=== PATIENT | male | born 1990 | race Caucasian/White ===

== ENCOUNTER 2017-11-14 10:20 | Emergency (ER) | payer MEDICAID, OTHER ==
[~2017-11-14] VITALS: Ht 175.3 cm; Wt 99.8 kg
[2017-11-14 10:27] VITALS: BP_SYST 132
[2017-11-14] MEDS ORDERED: DIPH-TET-PERTUS Vaccine 0.5 ML VIAL (ADACEL) I.M. ONE (11:15)
[2017-11-14 12:37] VITALS: BP_SYST 124
== END 2017-11-14 12:37 | disposition home or self-care (01) ==
LOC: SED 10:20
DX: S91.331A Puncture wound without foreign body, right foot, initial encounter (principal); W22.8XXA Striking against or struck by other objects, initial encounter; Y93.01 Activity, walking, marching and hiking; Y92.89 Other specified places as the place of occurrence of the external cause; Y99.8 Other external cause status
CPT/HCPCS: 90715; 99284

== ENCOUNTER 2018-02-19 19:51 | Emergency (ER) | payer MEDICAID ==
[~2018-02-19] VITALS: Ht 180.3 cm; Wt 97.5 kg
[2018-02-19 19:51] VITALS: BP_SYST 125
[2018-02-19] MEDS ORDERED: LORazepam 1 MG TABLET PO ONE (20:30)
[2018-02-19 20:48] VITALS: BP_SYST 120
== END 2018-02-19 20:48 | disposition home or self-care (01) ==
LOC: SED 19:51
DX: Z00.00 Encounter for general adult medical examination without abnormal findings (principal); R03.0 Elevated blood-pressure reading, without diagnosis of hypertension
CPT/HCPCS: 99282

== ENCOUNTER 2018-03-17 23:44 | Emergency (ER) | payer MEDICAID ==
[~2018-03-17] VITALS: Ht 175.3 cm; Wt 99.8 kg
[2018-03-17 23:55] VITALS: BP_SYST 153
[2018-03-18 00:09] VITALS: BP_SYST 141
== END 2018-03-18 00:09 | disposition home or self-care (01) ==
LOC: SED 23:44
DX: L03.312 Cellulitis of back [any part except buttock and flank] (principal); Z88.8 Allergy status to other drugs, medicaments and biological substances
CPT/HCPCS: 99283